=== PATIENT | male | born 1955 | race Caucasian/White ===

== ENCOUNTER 2022-08-31 16:57 | Emergency (ER) | payer OTHER ==
[~2022-08-31] VITALS: Ht 163.1 cm; Wt 91.6 kg
[2022-08-31 17:34] VITALS: BP 146/94
--- NOTE | 2022-08-31 17:59 | NUR ---
Abram mercado in [facility] - 08/31/22 at 1800 by [email or web address] PT AMB TO BED 2.
--- NOTE | 2022-08-31 18:00 | NUR ---
PT AMB TO BED 7.
--- NOTE | 2022-08-31 18:48 | NUR ---
Ultrasound at bedside.
--- NOTE | 2022-08-31 19:01 | NUR ---
67 y/o male bib self with c/o right leg swelling and redness x 4 days. Patient is noted with redness and swelling to right stratton. Patient has heat to the area. Patient had faint bilateral pulses. Patient is also noted with discoloration to the top of his right foot and an abrasion to right stratton. Medical History: Denies NKDA
[2022-08-31] MEDS ORDERED: hePARIN / DEXT 5% PREMIX 250 ML IV SCH ×2 (19:10→20:10)
[2022-08-31] MEDS ORDERED: HEPARIN PER PHARMACY MC PRN (19:10)
--- NOTE | 2022-08-31 19:20 | NUR ---
Report given to FREDY Archer for transfer of care.
--- NOTE | 2022-08-31 19:26 | NUR ---
PT MOVED TO ER BED 9
[2022-08-31 19:34] LABS: BASOPHILS % (AUTO) 0.6 % (0.0-2.0); EOSINOPHILS # (AUTO) 0.2 K/uL (0-0.4); EOSINOPHILS % (AUTO) 3.3 % (0.0-4.0); HEMATOCRIT 43.4 % (36-52); HEMOGLOBIN 14.5 g/dL (12.0-18.0); LYMPHOCYTES # (AUTO) 2.1 K/uL (2.0-11.5); LYMPHOCYTES % (AUTO) 32.3 % (20.5-51.1); MEAN CORPUSCULAR HEMOGLOBIN 31 pg (27-31); MEAN CORPUSCULAR HGB CONC 34 g/dL (33-37); MEAN CORPUSCULAR VOLUME 92.1 fL (80-94); MONOCYTES # (AUTO) 0.6 K/uL (0.8-1.0); MONOCYTES % (AUTO) 9.7 % (1.7-9.3); NEUTROPHILS # (AUTO) 3.5 K/uL (1.8-7.7); NEUTROPHILS % (AUTO) 54.1 % (42.2-75.2); PLATELET COUNT (AUTO) 163 K/uL (140-450); RED BLOOD CELL COUNT(AUTO) 4.71 MIL/uL (4.20-6.10); RED CELL DISTRIBUTION WIDTH 14.5 % (11.6-13.7); WHITE BLOOD COUNT (AUTO) 6.5 K/uL (4.8-10.8)
[2022-08-31 19:42] LABS: PROTHROMBIN TIME 10.8 secs (10.8-13.4)
[2022-08-31 19:46] LABS: ANION GAP 11.1 (8-16); CARBON DIOXIDE 28.5 mmol/L (21-32); CREATININE 0.7 mg/dL (0.6-1.3); POTASSIUM 3.6 mmol/L (3.5-5.1)
[2022-08-31 19:58] LABS: ALBUMIN 3.8 g/dL (3.4-5.0); TOTAL BILIRUBIN 1.2 mg/dL (0.0-1.0)
--- NOTE | 2022-08-31 20:00 | NUR ---
pt family called waiting to know the update. information was given
--- NOTE | 2022-08-31 22:55 | NUR ---
family called for medication that pt is taking at home.
[2022-08-31] MEDS ORDERED: FAMO-92 PO (23:15)
[2022-08-31] MEDS ORDERED: AMLO2.5T PO (23:15)
[2022-08-31] MEDS ORDERED: HYDR25TA32 PO (23:15)
[2022-08-31] MEDS ORDERED: [UNRECOGNIZED DRUG - CODE] (23:15)
[2022-08-31] MEDS ORDERED: ACET-2619 PO (23:15)
[2022-09-01] MEDS ORDERED: METO25TE2 PO (01:06)
--- NOTE | 2022-09-01 03:33 | NUR ---
[facility] TRANSPORT AT BEDSIDE
[2022-09-01 03:36] LABS: PROTHROMBIN TIME 11.4 secs (10.8-13.4)
[2022-09-01 03:42] VITALS: BP 112/73
--- NOTE | 2022-09-01 03:59 | NUR ---
PT TAKEN BY [facility] TRANSPORT TO [facility] ROOM [id number]
--- NOTE | 2022-09-01 05:17 | NUR ---
Patient to be transferred to [facility]. Is being transferred due to DVT. Receiving facility has accepting physician and available space. ER physician has signed transfer form. Patient or responsible libertarian has agreed to transfer and signed form. Patient belongings inventoried and will be sent with patient. Copy of nursing notes, lab reports, EKG, Physicians Orders and X-rays to be sent with patient. Report called to GENO at receiving facility. [facility] has been called for transfer. ETA is 15 MINUTES.
== END 2022-09-01 03:59 | disposition short-term general hospital (02) ==
LOC: MED 16:57
DX: I80.11 Phlebitis and thrombophlebitis of right femoral vein (principal); Z20.822 Contact with and (suspected) exposure to COVID-19; Z79.899 Other long term (current) drug therapy
CPT/HCPCS: 36415; 80053; 83605; 85025; 85610; 85730; 87426; 93005; 93971; 96365; 96366; 96376; 99291; J1644; Q0092; 99285

== ENCOUNTER 2022-12-22 11:15 | Emergency (ER) | payer OTHER ==
[~2022-12-22] VITALS: Ht 167.6 cm; Wt 74.8 kg
[~2022-12-22 11:15] MED LIST: ACET-2619 PO; AMLO2.5T PO; FAMO-92 PO; HYDR25TA32 PO; METO25TE2 PO
[2022-12-22 11:21] VITALS: BP 115/77; PULSE 120; RESP 20; TEMP 101.1; O2SAT 97
--- NOTE | 2022-12-22 11:52 | NUR ---
PATIENT PRESENTS TO ED WITH CHEST PAIN AND HEADACHE PAIN. PT ALSO HAS SYMPTOMS OF FEVER. PT STATES HE HAS HAD THIS PAIN FOR 3 HOURS. DENIES N/V/D; SKIN IS PINK/WARM/DRY; AAOX4 WITH EVEN AND STEADY GAIT; LUNGS CLEAR BL; HR EVEN AND REGULAR; PT DENIES ANY SOB, OR COUGH AT THIS TIME; PATIENT STATES PAIN OF 5/10 AT THIS TIME; VSS; PATIENT POSITIONED FOR COMFORT; HOB ELEVATED; BEDRAILS UP X2; BED DOWN. ER MD MADE AWARE OF PT STATUS.
--- NOTE | 2022-12-22 11:58 | NUR ---
PT LABS DRAWN. PT HAS BEEN PLACED IN GOWN ON MONITOR AND EKG DONE. PT WAITING TO BE SEEN BY PROVIDER.
[2022-12-22 12:05] VITALS: O2SAT 99
[2022-12-22] MEDS ORDERED: ACETAMINOPHEN 325 MG TAB PO ONE (12:15)
[2022-12-22 12:36] LABS: BASOPHILS % (AUTO) 0.3 % (0.0-2.0); HEMATOCRIT 39.8 % (36-52); HEMOGLOBIN 13.3 g/dL (12.0-18.0); LYMPHOCYTES # (AUTO) 0.9 K/uL (2.0-11.5); LYMPHOCYTES % (AUTO) 6.6 % (20.5-51.1); MEAN CORPUSCULAR HEMOGLOBIN 30 pg (27-31); MEAN CORPUSCULAR HGB CONC 33 g/dL (33-37); MEAN CORPUSCULAR VOLUME 89.5 fL (80-94); MONOCYTES # (AUTO) 0.4 K/uL (0.8-1.0); MONOCYTES % (AUTO) 3.3 % (1.7-9.3); NEUTROPHILS # (AUTO) 11.9 K/uL (1.8-7.7); NEUTROPHILS % (AUTO) 89.8 % (42.2-75.2); PLATELET COUNT (AUTO) 197 K/uL (140-450); RED BLOOD CELL COUNT(AUTO) 4.45 MIL/uL (4.20-6.10); WHITE BLOOD COUNT (AUTO) 13.2 K/uL (4.8-10.8)
[2022-12-22] MEDS ORDERED: cefTRIAXone 1,000 MG VIAL ONE (12:36)
[2022-12-22] MEDS: NACL 0.9% 2,000 ML IV SCH ×2 (12:49→12:56)
[2022-12-22 12:59] LABS: ALBUMIN 3.4 g/dL (3.4-5.0); ANION GAP 4.2 (8-16); CARBON DIOXIDE 22.2 mmol/L (21-32); CREATININE 0.7 mg/dL (0.6-1.3); POTASSIUM 3.4 mmol/L (3.5-5.1); TOTAL BILIRUBIN 1.9 mg/dL (0.0-1.0)
--- NOTE | 2022-12-22 13:00 | NUR ---
Pt has been medicated per providers orders. Pt is being treated for sepisis protocal. pt has cellulites in right lower leg.
[2022-12-22 13:02] LABS: LIPASE 40 U/L (73-393)
--- NOTE | 2022-12-22 13:13 | NUR ---
Pt has gone to CT.
[2022-12-22 13:26] LABS: APPEARANCE,URINE CLEAR (CLEAR); BILIRUBIN,URINE NEGATIVE (NEGATIVE); BLOOD, URINE TRACE-I (NEGATIVE); COLOR,URINE YELLOW (YELLOW); LEUKOCYTE ESTERASE ,URINE NEGATIVE (NEGATIVE); NITRITE, URINE NEGATIVE (NEGATIVE); UGLUCOSE NEGATIVE (NEGATIVE)
[2022-12-22 14:22] VITALS: BP 104/64; PULSE 94; RESP 22; TEMP 98.1; O2SAT 95
--- NOTE | 2022-12-22 15:06 | NUR ---
PT HAS BEEN OFFERED A URINAL AT BEDSIDE.
[2022-12-22] MEDS ORDERED: CEPH-588 PO (15:45)
[2022-12-22] MEDS ORDERED: AMOX1TAB8 PO (15:45)
--- NOTE | 2022-12-22 15:55 | NUR ---
Patient discharged with v/s stable. Written and verbal after care instructions given and explained. Patient alert, oriented and verbalized understanding of instructions. Ambulatory with steady gait. All questions addressed prior to discharge. ID band removed. Patient advised to follow up with PMD. Rx of AUGMENTIN, KEFLEX given. Patient educated on indication of medication including possible reaction and side effects. Opportunity to ask questions provided and answered.
== END 2022-12-22 15:55 | disposition home or self-care (01) ==
LOC: MED 11:15
DX: L03.115 Cellulitis of right lower limb (principal); J32.9 Chronic sinusitis, unspecified; R50.9 Fever, unspecified; R07.9 Chest pain, unspecified; E11.9 Type 2 diabetes mellitus without complications; I10 Essential (primary) hypertension; Z79.4 Long term (current) use of insulin; Z79.899 Other long term (current) drug therapy
CPT/HCPCS: 36415; 70450; 71045; 80053; 81003; 82550; 83605; 83690; 83880; 84484; 85025; 87040; 87086; 96365; 99285; J0696; J7030; Q0092